=== PATIENT | female | born 1980 | race Asian ===

== ENCOUNTER 2019-07-14 21:12 | Emergency (ER) | payer SELFPAY ==
[~2019-07-14] VITALS: Ht 160 cm; Wt 50.4 kg
[2019-07-15 01:16] VITALS: BP 107/72
== END 2019-07-15 01:16 | disposition home or self-care (01) ==
LOC: ED 21:12
DX: S61.211A Laceration without foreign body of left index finger without damage to nail, initial encounter (principal); W26.0XXA Contact with knife, initial encounter; Y93.89 Activity, other specified; Y92.89 Other specified places as the place of occurrence of the external cause; Y99.8 Other external cause status
CPT/HCPCS: 90715